=== PATIENT | female | born 1965 | race Hispanic/Latino ===

== ENCOUNTER 2019-10-13 10:23 | Observation (INO) | payer SELFPAY ==
[~2019-10-13] VITALS: Ht 160 cm; Wt 84.4 kg
[2019-10-13] MEDS ORDERED: ONDANSETRON HCL INJ 2MG/ML 2ML 2 MG/ML VIAL IV STA (10:53)
[2019-10-13] MEDS ORDERED: SODIUM CHLORIDE 0.9% 1000ML 1,000 ML IV STA (10:53)
[2019-10-13] MEDS ORDERED: PANTOPRAZOLE 40 MG 10ML VIAL IV STA (10:53)
[2019-10-13] MEDS ORDERED: ASPIRIN 81 MG CHEW TAB PO ONE (11:00)
[2019-10-13 11:30] LABS: BASOPHILS % 0.6 % (0.0-1.0); EOSINOPHILS % 0.4 % (0.0-6.0); HEMATOCRIT 41.5 % (34.2-44.1); HEMOGLOBIN 13.8 g/dL (12.0-16.0); LYMPHOCYTES # (AUTO) 1.6 (1.0-3.2); LYMPHOCYTES % 33.8 % (18.0-39.1); MEAN CORPUSCULAR HEMOGLOBIN 29.2 pg (28-32); MEAN CORPUSCULAR HGB CONC 33.3 g/dL (31-35); MEAN CORPUSCULAR VOLUME 87.7 fL (81-99); MONOCYTES # (AUTO) 0.5 (0.2-0.8); MONOCYTES % 11.3 % (4.4-11.3); NEUTROPHILS # (AUTO) 2.6 (2.1-6.9); NEUTROPHILS % 53.7 % (38.7-80.0); PLATELET COUNT 263 x10e3/uL (140-360); RED BLOOD COUNT 4.73 x10e6/uL (3.6-5.1); RED CELL DISTRIBUTION WIDTH 13.2 % (11.7-14.4)
[2019-10-13 11:40] LABS: INR 0.88; PROTHROMBIN TIME 12.5 seconds (11.9-14.5)
[2019-10-13 11:41] LABS: PARTIAL THROMBOPLASTIN TIME 24.7 seconds (23.8-35.5)
--- NOTE | 2019-10-13 11:44 | NUR ---
patients daughter Lizet [phone]
[2019-10-13 11:49] LABS: ALANINE AMINOTRANSFERASE 172 IU/L (0-55); ALBUMIN 3.9 g/dL (3.5-5.0); ALBUMIN/GLOBULIN RATIO 1.1 (0.8-2.0); ALKALINE PHOSPHATASE 77 IU/L (40-150); ANION GAP 16.2 mmol/L (8-16); BLOOD UREA NITROGEN 11 mg/dL (7-26); BUN/CREATININE RATIO 14 (6-25); CALCIUM 8.9 mg/dL (8.4-10.2); CARBON DIOXIDE 22 mmol/L (22-29); CHLORIDE 104 mmol/L (98-107); CREATINE KINASE 76 IU/L (29-168); CREATININE, SERUM 0.77 mg/dL (0.57-1.11); EST GLOMERULAR FILTRATION RATE > 60 ML/MIN (60-); GLUCOSE 108 mg/dL (74-118); POTASSIUM 4.2 mmol/L (3.5-5.1); SODIUM 138 mmol/L (136-145)
--- NOTE | 2019-10-13 12:18 | Emergency Department Note ---
History of Present Illnes History of Present Illness Chief Complaint: COVID PUI History of Present Illness This is a 54 year old female HERE FOR CHEST PAIN LAST NIGHT, REPORTS PAIN 3/10 AT THIS TIME. DENIES NAUSEA, VOMITING, DIARRHEA, NAUSEA. REPORTS CHILLS AND FEELING HOT YESTERDAY EVENING. DENIES COUGH. CLIENT IN NO APPARENT DISTRESS DURING TRIAGE. STATES THAT HER MOTHER IN LAW OF COVID INFECTION 3 WEEKS AGO. Historian: Patient Arrival Mode: Car [employer] Required: Yes Onset (how long ago): hour(s) (STARTED LAST NIGHT) Location: CHEST Quality: PAIN Radiation: Reports non-radiation Severity: moderate Onset quality: sudden Timing of current episode: intermittent Progression: waxing and waning Chronicity: new Context: Denies recent illness Relieving factors: none Exacerbating factors: none Associated symptoms: Reports shortness of breath Treatments prior to arrival: none Past Medical/Family History Physician Review I have reviewed the patient's past medical and family history. Any updates have been documented here. Past Medical History Recent Fever: No Clinical Suspicion of Infectio: No New/Unexplained Change in Ment: No Past Medical History: Hypertension, Diabetes, Hyperlipedemia Past Surgical History: None Social History Smoking Cessation: Never Smoker Counseling Performed: No Alcohol Use: None Any Illegal Drug Use: No TB Exposure/Symptoms: No Physically hurt or threatened: No Other Any Pre-Existing Lines (PICC,: No Is patient up to date on immun: Yes Last Flu: UTD Last Pneumovax: UTD Review of Systems Review of Systems Constitutional: Reports no symptoms EENTM: Reports no symptoms Cardiovascular: Reports as per HPI, Reports chest pain Respiratory: Reports dyspnea Gastrointestinal: Reports no symptoms Genitourinary: Reports no symptoms Musculoskeletal: Reports no symptoms Integumentary: Reports no symptoms Neurological: Reports no symptoms Psychological: Reports no symptoms Endocrine: Reports no symptoms Hematological/Lymphatic: Reports no symptoms Physical Exam Related Data Allergies: Coded Allergies: No Known Allergies (Unverified , 10/13/19) Triage Vital Signs Vital Signs Date Time Temp Pulse Resp B/P (MAP) Pulse Ox O2 Delivery O2 Flow Rate FiO2 10/13/19 10:44 98.9 81 16 132/98 99 Vital signs reviewed: Yes Physical Exam CONSTITUTIONAL Constitutional: Present well-developed, Present well-nourished HENT HENT: Present normocephalic, Present atraumatic, Present oropharynx clear/mois t, Present nose normal HENT L/R: Present left ext ear normal, Present right ext ear normal EYES Eyes: Reports PERRL, Reports conjunctivae normal NECK Neck: Present ROM normal PULMONARY Pulmonary: Present effort normal, Present breath sounds normal CARDIOVASCULAR Cardiovascular: Present regular rhythm, Present heart sounds normal, Present capillary refill normal, Present normal rate GASTROINTESTINAL Abdominal: Present soft, Present nontender, Present bowel sounds normal GENITOURINARY Genitourinary: Present exam deferred SKIN Skin: Present warm, Present dry MUSCULOSKELETAL Musculoskeletal: Present ROM normal NEUROLOGICAL Neurological: Present alert, Present oriented x 3, Present no gross motor or sensory deficits PSYCHOLOGICAL Psychological: Present mood/affect normal, Present judgement normal Results Laboratory Result Diagram: 10/13/19 1114 10/13/19 1114 Laboratory Laboratory Tests Test 10/13/19 11:14 White Blood Count 4.77 x10e3/uL (4.8-10.8) Red Blood Count 4.73 x10e6/uL (3.6-5.1) Hemoglobin 13.8 g/dL (12.0-16.0) Hematocrit 41.5 % (34.2-44.1) Mean Corpuscular Volume 87.7 fL (81-99) Mean Corpuscular Hemoglobin 29.2 pg (28-32) Mean Corpuscular Hemoglobin Concent 33.3 g/dL (31-35) Red Cell Distribution Width 13.2 % (11.7-14.4) Platelet Count 263 x10e3/uL (140-360) Neutrophils (%) (Auto) 53.7 % (38.7-80.0) Lymphocytes (%) (Auto) 33.8 % (18.0-39.1) Monocytes (%) (Auto) 11.3 % (4.4-11.3) Eosinophils (%) (Auto) 0.4 % (0.0-6.0) Basophils (%) (Auto) 0.6 % (0.0-1.0) Neutrophils # (Auto) 2.6 (2.1-6.9) Lymphocytes # (Auto) 1.6 (1.0-3.2) Monocytes # (Auto) 0.5 (0.2-0.8) Eosinophils # (Auto) 0.0 (0.0-0.4) Basophils # (Auto) 0.0 (0.0-0.1) Absolute Immature Granulocyte (auto 0.01 x10e3/uL (0-0.1) Prothrombin Time 12.5 seconds (11.9-14.5) Prothromb Time International Ratio 0.88 Activated Partial Thromboplast Time 24.7 seconds (23.8-35.5) D-Dimer Quantitative (PE/DVT) 0.28 ug/mLFEU (0.00-0.45) Sodium Level 138 mmol/L (136-145) Potassium Level 4.2 mmol/L (3.5-5.1) Chloride Level 104 mmol/L (98-107) Carbon Dioxide Level 22 mmol/L (22-29) Anion Gap 16.2 mmol/L (8-16) Blood Urea Nitrogen 11 mg/dL (7-26) Creatinine 0.77 mg/dL (0.57-1.11) Estimat Glomerular Filtration Rate > 60 ML/MIN (60-) BUN/Creatinine Ratio 14 (6-25) Glucose Level 108 mg/dL (74-118) Calcium Level 8.9 mg/dL (8.4-10.2) Total Bilirubin 0.2 mg/dL (0.2-1.2) Aspartate Amino Transf (AST/SGOT) 91 IU/L (5-34) Alanine Aminotransferase (ALT/SGPT) 172 IU/L (0-55) Alkaline Phosphatase 77 IU/L (40-150) Creatine Kinase 76 IU/L (29-168) Creatine Kinase MB 0.70 ng/mL (0-5.0) Troponin I < 0.001 ng/mL (0-0.300) B-Type Natriuretic Peptide < 10.0 pg/mL (0-100) Total Protein 7.3 g/dL (6.5-8.1) Albumin 3.9 g/dL (3.5-5.0) Globulin 3.4 g/dL (2.3-3.5) Albumin/Globulin Ratio 1.1 (0.8-2.0) Lab results reviewed: Yes Imaging Imaging results reviewed: Yes Procedures 12 Lead ECG Interpretation ECG Interpretation : ECG: ECG 1 [employer]: Interpreted by ED physician Date: Oct 13, 2019 Time: 11:07 Rhythm: sinus rhythm Rate: normal (74) QRS axis: normal ST segments normal: Yes T waves normal: Yes Clinical Impression: normal ECG Assessment & Plan Medical Decision Making MDM PT WITH CARDIAC RF'S OF HTN, DM, CHOL PRESENTS WITH CHEST PAIN, MILD SOB, AND RECENT EXPOSURE TO COVID19 - CHECK CBC, CHEM'S, CARDIAC ENZYMES, PT/PTT, CXR, COVID SWAB - R/O STEMI/NSTEMI, COVID19, ELECTROYTE ABNL, ANEMIA Reassessment Reassessment i SPOKE WITH DR CABAN FOR ADMISSION, DR Alex MCKEON AND RAINA FOR CONSULTS Assessment & Plan Final Impression: (1) Chest pain Depart Disposition: ADMITTED Last Vital Signs Date Time Temp Pulse Resp B/P (MAP) Pulse Ox O2 Delivery O2 Flow Rate FiO2 10/13/19 11:15 75 18 127/80 99 10/13/19 10:44 98.9 Medications in the ED Pantoprazole Sodium 40 mg ONCE STAT IV Last administered on 10/13/19at 11:49; Admin Dose 40 MG; Start 10/13/19 at 10:53; Stop 10/13/19 at 11:06; Status DC Ondansetron HCl 4 mg ONCE STAT IV Last administered on 10/13/19at 11:49; Admin Dose 4 MG; Start 10/13/19 at 10:53; Stop 10/13/19 at 11:06; Status DC Sodium Chloride 1,000 ml @ 0 mls/hr Q0M STAT IV Last administered on 10/13/19at 11:49; Admin Dose 1,000 MLS/HR; Start 10/13/19 at 10:53; Stop 10/13/19 at 10:56; Status DC Aspirin 81 mg PRN ONCE PO Last administered on 10/13/19at 11:49; Admin Dose 81 MG; Start 10/13/19 at 11:00; Stop 10/13/19 at 11:06; Status DC CATRACHO NGUYEN MD Oct 13, 2019 12:18
[2019-10-13] MEDS ORDERED: MORPHINE SULFATE 2 MG/ML SYR 1ML IV PRN (12:30)
[2019-10-13] MEDS ORDERED: ONDANSETRON HCL INJ 2MG/ML 2ML 2 MG/ML VIAL IV PRN (12:30)
[2019-10-13] MEDS ORDERED: NITROGLYCERIN 0.4 MG SUBL SL PRN (12:30)
[2019-10-13] MEDS ORDERED: DEXTROSE 50% SYRINGE 50 ML IV PRN (12:30)
--- NOTE | 2019-10-13 12:56 | NUR ---
CALLED FOR LUNCH MEAL TRAY
--- NOTE | 2019-10-13 12:57 | Diagnostic Imaging Report ---
TECHNIQUE: Frontal view of the chest. INDICATION: ^COUGH, CP ^[id number] ^1200 COMPARISON: None. IMPRESSION: Lines and hardware: None. Heart and mediastinum: Unremarkable. Lungs and pleura: No focal airspace consolidation. No pleural effusion. No pneumothorax. Soft tissues and bones: No acute abnormality. Signed by: Gee Siddiqui MD on 10/13/2019 12:54 PM
[2019-10-13 14:04] VITALS: BP 132/73
[2019-10-13] MEDS ORDERED: HYDROCODONE/APAP 5MG-325MG TAB PO PRN (14:15)
[2019-10-13 14:41] VITALS: BP 131/69
--- NOTE | 2019-10-13 15:28 | NUR ---
GAVE PACKET OF INFORMATION WITH [facility]ITY [employer] FOR ASSISTANCE WITH LOW TO NO INCOME TO PATIENT. RESOURCES THAT PATIENT MAY BE ABLE TO FOLLOW UP UPON DISCHARGE. PT EDUCATED ON EACH RESOURCE AND UNDERSTANDING HOW TO FOLLOW UP TO SEE IF QUALIFIED FOR EACH RESOURCE.
[2019-10-13 16:00] VITALS: BP 131/69
--- NOTE | 2019-10-13 16:21 | Consultation ---
DATE OF CONSULTATION: REASON FOR CONSULTATION: COVID-19. HISTORY OF PRESENT ILLNESS: This is a 54-year-old Latin-Citizen Of [place] female, comes in with fever, chills, chest pain . The patient had fever and chills. No cough. The patient was admitted. PAST MEDICAL HISTORY: Denies. PAST SURGICAL HISTORY: Denies. ALLERGIES: NKA. SOCIAL HISTORY: There is no smoking, drug abuse or alcohol abuse. LABORATORY DATA: White count 4.77, hemoglobin 13.8. Her COVID-19 is pending. potassium 4.2, creatinine 0.77. PHYSICAL EXAMINATION: GENERAL: Currently alert, oriented. VITAL SIGNS: Stable, afebrile, heart rate of 81, respirations 16. HEENT: Normocephalic, not icteric. NECK: Supple. CHEST: Clear bilateral. COR: S1 and S2. No S3, S4, or murmur. ABDOMEN: Soft. Bowel sounds present. EXTREMITIES: No edema. SKIN: No rash. IMPRESSION: Chest x-ray was negative; chest pain, feeling feverish, rule out viral infection since this is coronavirus disease-19 we are going to rule her out. Keep her on droplet isolation for now. IV fluid. No antibiotic at the present time. We will reassess. MD KELLEY Richards/JASVIR /[id number]
[2019-10-13] MEDS ORDERED: ENOXAPARIN SOD INJ 40 MG/0.4 ML SYR SC SCH (17:00)
[2019-10-13] MEDS ORDERED: CEFTRIAXONE SOD 1 GM/NS 50 ML 50 ML IV SCH (17:30)
[2019-10-13] MEDS ORDERED: AZITHROMYCIN 500MG/NS 250 ML 250 ML IV SCH (18:00)
[2019-10-13] MEDS: INSULIN LISPRO 100 UNIT/1 ML 3ML VIAL SQ SCH ×2 (18:05→20:32)
[2019-10-13] MEDS ORDERED: SODIUM CHLORIDE 0.9% 250ML 250 ML ONE (18:12)
[2019-10-13] MEDS ORDERED: LOSARTAN POTASS25 MG (18:43)
[2019-10-13] MEDS ORDERED: METFORMIN HCL500 MG PO (18:43)
--- NOTE | 2019-10-13 18:50 | NUR ---
Patient arrived from ER at 1430 . 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 Patient is on room air. Patient has a patent, c/d/i IV in the left 20g AC. Patient has Daoralia, Zac, Shebib, and Palmer on the case, all doctors were notified by Dr. Latham in the ER. Patient was oriented to room, procedures, and plan of care from here on out. No other issues or questions at this time.
[2019-10-13 19:00] LABS: CREATINE KINASE 71 IU/L (29-168)
--- NOTE | 2019-10-13 19:11 | Consultation ---
DATE OF CONSULTATION: Pulmonary Critical Care Consultation CHIEF COMPLAINT: Chest discomfort and fevers. HISTORY OF PRESENT ILLNESS: The patient is a 54-year-old woman. She reports some fevers for 3 or 4 days. She noted some discomfort in her chest as well. She denies cough or difficulty breathing. She is not having nausea or vomiting. PAST MEDICAL HISTORY: Diabetes. PAST SURGICAL HISTORY: Noncontributory. ALLERGIES: NO KNOWN DRUG ALLERGIES. FAMILY HISTORY: Family history is noncontributory. SOCIAL HISTORY: The patient is not a smoker or drinker. REVIEW OF SYSTEMS: The patient reports some fever. She is not having any headache. She denies any neck pain. She did have some chest pain. She denies dyspnea or cough. She has no abdominal pain. There is no nausea or vomiting. She has no leg edema. PHYSICAL EXAMINATION: VITAL SIGNS: Stable. The blood pressure is 132/73, saturation is 100%, and the pulse is 73. The respiratory rate is 24. HEENT: Shows no facial swelling or erythema. CARDIAC: Reveals regular rate and rhythm with normal S1 and S2. There are no murmurs or rubs. LUNGS: Auscultation of lungs reveals clear breath sounds bilaterally. There is no wheezing. ABDOMEN: Soft and nontender. There is no rebound or guarding. EXTREMITIES: Shows no leg edema or calf tenderness. There is no cyanosis or clubbing. SKIN: Shows no rashes. NEUROLOGICAL: Shows no focal abnormalities. LABORATORY DATA: BUN to creatinine ratio is 11 to 0.77 and the AST is 91. RADIOGRAPHIC DATA: Chest x-ray shows no abnormalities. IMPRESSION: 1. COVID-19 and viral pneumonia. 2. Diabetes. PLAN: 1. IV hydration as needed. 2. Oxygen as needed. 3. Zithromax and Rocephin. 4. Lovenox. Uvaldo Bal MD [facility]/MODL /[id number]
[2019-10-13 20:10] VITALS: BP 113/73
[2019-10-13] MEDS: FAMOTIDINE 20 MG/2 ML VIAL IV SCH (20:31)
[2019-10-13] MEDS ORDERED: MELATONIN 5 MG TABLET PO PRN (21:00)
[2019-10-13 22:58] VITALS: BP 113/73
[2019-10-14 00:04] VITALS: BP 107/62
[2019-10-14 04:05] VITALS: BP 113/73
[2019-10-14 05:46] LABS: BASOPHILS % 0.9 % (0.0-1.0); EOSINOPHILS % 0.9 % (0.0-6.0); HEMATOCRIT 40.3 % (34.2-44.1); HEMOGLOBIN 13.3 g/dL (12.0-16.0); LYMPHOCYTES # (AUTO) 2.2 (1.0-3.2); LYMPHOCYTES % 47.6 % (18.0-39.1); MEAN CORPUSCULAR HEMOGLOBIN 30.2 pg (28-32); MONOCYTES # (AUTO) 0.3 (0.2-0.8); MONOCYTES % 7.3 % (4.4-11.3); NEUTROPHILS % 43.1 % (38.7-80.0); PLATELET COUNT 178 x10e3/uL (140-360); RED CELL DISTRIBUTION WIDTH 13.4 % (11.7-14.4)
[2019-10-14 05:47] LABS: MEAN CORPUSCULAR VOLUME 91.6 fL (81-99)
[2019-10-14 06:04] LABS: ALANINE AMINOTRANSFERASE 136 IU/L (0-55); ALBUMIN 3.4 g/dL (3.5-5.0); ALBUMIN/GLOBULIN RATIO 1.1 (0.8-2.0); ALKALINE PHOSPHATASE 67 IU/L (40-150); ANION GAP 14.2 mmol/L (8-16); BLOOD UREA NITROGEN 13 mg/dL (7-26); BUN/CREATININE RATIO 17 (6-25); CALCIUM 8.4 mg/dL (8.4-10.2); CARBON DIOXIDE 25 mmol/L (22-29); CHLORIDE 103 mmol/L (98-107); CHOL/HDL RATIO 4.9 (3.0-3.6); CHOLESTEROL 186 MD/DL (0-199); CREATININE, SERUM 0.75 mg/dL (0.57-1.11); EST GLOMERULAR FILTRATION RATE > 60 ML/MIN (60-); GLUCOSE 120 mg/dL (74-118); HDL CHOLESTEROL 38 MG/DL (40-60); LDL CHOLESTEROL 125 MG/DL (60-130); POTASSIUM 4.2 mmol/L (3.5-5.1); SODIUM 138 mmol/L (136-145); TRIGLYCERIDES 116 MG/DL (0-149)
[2019-10-14 06:06] LABS: CREATINE KINASE MB 0.4 ng/mL (0-5.0)
[2019-10-14] MEDS: INSULIN LISPRO 100 UNIT/1 ML 3ML VIAL SQ SCH ×2 (07:30→12:22)
[2019-10-14] MEDS: FAMOTIDINE 20 MG/2 ML VIAL IV SCH (08:55)
[2019-10-14] MEDS ORDERED: ASPIRIN 81 MG ENTERIC COATED PO SCH (09:00)
[2019-10-14 09:06] VITALS: BP 113/73
--- NOTE | 2019-10-14 10:00 | NUR ---
Dr. Barth assessed patient and cleared patient for discharge. Office information given to patient and patient's daughter.
--- NOTE | 2019-10-14 11:39 | Progress Note ---
DATE: SUBJECTIVE: The patient is seen and evaluated. Available labs and notes reviewed. Discussed with the patient. The patient is Ukrainian speaking. Discussed with the nurse. Please refer to chart for more information. REVIEW OF SYSTEMS: The patient denied nausea, vomiting, fever, chills, chest pain, shortness of breath, diarrhea, cough. The patient states that she is doing totally okay. PHYSICAL EXAMINATION: VITAL SIGNS: Temperature 98.1, pulse 78, respirations 17, blood pressure 113/73. GENERAL: Alert and oriented, very pleasant, sitting in the edge of the bed on room air, in no acute distress. CV: S1, S2. CHEST: Equal expansion. Clear to auscultation with decreased breath sounds. ABDOMEN: Soft, nontender, no distention. HEENT: Moist. No pallor. No JVD. EXTREMITIES: Moves all. No significant edema. MEDICATIONS: Medication is reviewed. From ID point of view, the patient is on Zithromax and Rocephin. LABORATORY STUDIES: White count 4.52, hemoglobin 13.3, platelet 178. Sodium 138, potassium 4.5, creatinine 0.75. Serology; coronavirus PCR on 10/13/2019 detected. IMAGING: Chest x-ray on 10/13/2019, showed no focal airspace consolidation, no pleural effusion, no pneumothorax with no acute abnormalities of the soft tissue or the bones. ASSESSMENT AND PLAN: 1. Positive coronavirus disease-19 on 10/13/2019 with possible superimposed bacterial infection. 2. Hyperglycemia. 3. Insomnia. 4. Pain. 5. Continue with Rocephin and Zithromax. The patient is also on aspirin 81 mg and Lovenox 40 mg daily. Monitor patient clinically on a daily basis and monitor for DVT and PE. 6. Please refer to the chart for more information. Currently, the patient is asymptomatic and no fever and no shortness of breath. Discussed with Dr. Castillo in details. Dictated by Zack Carrera PA-C (Al) Isi Castillo MD /MODL /[id number]
[2019-10-14 11:49] VITALS: BP 124/69
--- NOTE | 2019-10-14 12:58 | NUR ---
confirmed with patient and daughter, Lizet, that patient has no previous history of any abnormal bleeding and not currently experiencing any bleeding.
[2019-10-14] MEDS ORDERED: ONDANSETRON HCL 4 MG ORAL DISINTEGRATING TAB PO PRN (13:30)
--- NOTE | 2019-10-14 13:33 | NUR ---
discharge completed with patient and over phone with daughter. prescriptions given to patient along with coupon for eliquis. all questions answered. patient aware of follow ups needed and clear on discharge instructions. iv access removed, bleeding controlled and dressing applied. telemetry removed. 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
--- NOTE | 2019-10-14 13:40 | Progress Note ---
DATE: SUBJECTIVE: The patient feels better. She is not complaining of dyspnea or cough. She has no chest pain. She is not having any fevers. PHYSICAL EXAMINATION: VITAL SIGNS: The blood pressure is 124/69, saturation is 98%. The pulse is 69. Respiratory rate is 16. HEENT: No facial swelling or erythema. CARDIAC: Regular rate and rhythm with normal S1, S2. LUNGS: Auscultation of lungs reveals clear breath sounds bilaterally. There is no wheezing. ABDOMEN: Soft, nontender. There is no rebound or guarding. LABORATORY DATA: White blood cell count is 4.5 and hemoglobin is 13.3. The platelet count is 178. BUN to creatinine ratio is 13 to 0.75. The other electrolytes are within normal limits. AST is 165 and ALT is 136. Albumin is 3.4. IMPRESSION: 1. Coronavirus disease-19 and viral pneumonia. 2. Diabetes. PLAN: 1. Okay for discharge home. 2. Zithromax at home. 3. Self quarantine until the patient is asymptomatic for 7 days. 4. Follow up with physician after self quarantine. 5. The patient should return to the ER for any worsening dyspnea or fevers or concerns. Uvaldo Bal MD [facility]/JASVIR /[id number]
--- NOTE | 2019-10-14 14:02 | NUR ---
patient ambulated off unit in mask to 's personal vehicle.
--- NOTE | 2019-10-14 20:26 | Consultation ---
DATE OF CONSULTATION: Cardiology Consultation REASON FOR CONSULTATION: Chest pain. HISTORY OF PRESENT ILLNESS: This is a 54-year-old woman who presented with fever, mild chest discomfort and some shortness of breath. No cough, nausea, vomiting, or diarrhea. She has no past cardiac history. She was found to be positive for the coronavirus. REVIEW OF SYSTEMS: A 12-point review of system was conducted, is negative except as stated above in the HPI. PAST MEDICAL HISTORY: As stated above in the HPI. PAST SURGICAL HISTORY: Noncontributory to current illness. PAST FAMILY HISTORY: Noncontributory to current illness. SOCIAL HISTORY: No illicit drug, alcohol, or tobacco use. ALLERGIES: NO KNOWN DRUG ALLERGIES. MEDICATIONS: See medication reconciliation form. PHYSICAL EXAMINATION: VITAL SIGNS: She is afebrile, heart rate 69, respirations 16, blood pressure is 124/69, oxygen saturation 98% on room air. GENERAL: Well appearing, well built, no apparent distress. Alert and oriented x3. HEAD: Normocephalic and atraumatic. EYES: Extraocular muscles intact. Conjunctivae clear. NECK: No JVD. No bruits. CARDIOVASCULAR: Regular rate and rhythm. LUNGS: Clear to auscultation. ABDOMEN: Soft, nontender, nondistended. EXTREMITIES: No clubbing cyanosis or edema. VASCULAR: 2+ pulses. SKIN: Warm, dry and intact. LABORATORY DATA: Reviewed. Cardiac troponins are negative. CARDIOVASCULAR MEDICATIONS: Reviewed. Chest x-ray shows no acute cardiopulmonary abnormality. Echocardiogram showed preserved left ventricular systolic function. IMPRESSION: 1. Positive for the coronavirus. 2. Chest pain. 3. Elevated liver function tests. 4. A 12-lead electrocardiogram showed normal sinus rhythm. RECOMMENDATIONS: The patient was ruled out for acute myocardial infarction. A 12-lead electrocardiogram was within normal limits. Her echocardiogram was within normal limits. The patient may be discharged from a cardiovascular standpoint with outpatient followup. Abnormal liver enzymes evaluation per primary team. Coronavirus treatment per primary team. Yan Barth DO [facility]/MODL /[id number]
--- NOTE | 2019-10-14 20:46 | History and Physical ---
CHIEF COMPLAINT: Cough, congestion, and fever. HISTORY OF PRESENT ILLNESS: A 54-year-old female, morbidly obese, came into the ED with complaints of cough, congestion, and fever ongoing since Friday of this last week. The patient reports that she was exposed to bullard virus people and came in to be further evaluated and managed. While here, the patient was found to be bullard virus positive. She was admitted to the COVID Unit and being managed by ID and Pulmonary. The patient was complaining of chest pain in which Cardiology was involved. Cardiac enzymes were found to be worked up and Cardiology was consulted. The patient is seen and evaluated at bedside on the medical floor. She is currently doing well with no other issues at this time. REVIEW OF SYSTEMS: Pertinent positives chest pain, cough, congestion, and fever. The rest of 14-point review of systems have been reviewed the patient and are negative. ALLERGIES: NO KNOWN DRUG ALLERGIES. MEDICATIONS: Losartan and metformin. PAST MEDICAL HISTORY: Hypertension and diabetes. PAST SURGICAL HISTORY: None. FAMILY HISTORY: Hypertension and diabetes. SOCIAL HISTORY: No drugs. No alcohol. Does not smoke. Has children. PHYSICAL EXAMINATION: VITAL SIGNS: Temperature 98.5, pulse 69, respirations 16, blood pressure 124/69, pulse ox 98% on room air. GENERAL: Not in acute distress, alert and oriented x3. Cooperative on examination. HEAD: Normocephalic and atraumatic. EYES: Extraocular muscles are intact bilaterally. NECK: Supple. Good range of motion throughout. No evidence of erythema or exudate in the posterior pharynx. Has poor dentition. PULMONARY: Clear to auscultation bilaterally. No wheezing, rales, or rhonchi. No crackles appreciated. CARDIOVASCULAR: Positive S1, S2. No murmurs, rubs, or gallops. ABDOMEN: Soft, nontender, nontender to palpation. Bowel sounds present. MUSCULOSKELETAL: Strength is 5/5 throughout. No evidence of any muscle deficits on examination. No weakness appreciated. NEUROLOGIC: Cranial nerves II through XII grossly intact. No evidence of any neurological deficits on exam. SKIN: Intact. Warm to touch. Good cap refill. PSYCHIATRIC: Normal affect and mood. EXTREMITIES: No edema. Good range of motion throughout. LABORATORY FINDINGS: Show white count 4.5, hemoglobin 13, hematocrit 40, platelets of 178,000. Coagulation PT 12, INR 0.88, PTT 24.7. D-dimer 0.28. Chemistry sodium is 138, potassium 4.2, chloride 103, bicarb 25, anion gap of 14, BUN 13, creatinine 0.75, glucose 120, A1c 7, calcium 8.4, total bilirubin is 0.2, AST 65, ALT 136. Troponins were negative. Albumin 3.4. LDL is 125. TSH is 2. Serology for bullard virus PCR positive. IMAGING STUDIES: Chest x-ray shows no acute abnormality. IMPRESSION: 1. COVID-19 pneumonia. 2. Cough, congestion, and fever secondary to #1. 3. Chest pain. 4. Type 2 diabetes. PLAN: At this time symptomatic treatment. IV antibiotics. ID and pulmonary consultation. Put on insulin sliding scale. Trend cardiac enzymes. Cardiology consultation. Resume same home medications. Lovenox for DVT prophylaxis. MD FADY Gutiérrez/JASVIR /[id number]
--- NOTE | 2019-10-14 22:26 | Discharge Summary ---
FINAL DISCHARGE DIAGNOSES: 1. Coronavirus disease 2019 pneumonia. 2. Cough and congestion secondary to coronavirus disease 2019 pneumonia. 3. Atypical chest pain. 4. Type 2 diabetes. CONSULTANTS: 1. Cardiology cleared for discharge. 2. ID cleared for discharge. 3. Pulmonary cleared for discharge. VITAL SIGNS: Temperature is 98.5, pulse 69, respiratory rate is 16, blood pressure 124/69, pulse ox 98% on room air. LABORATORY DATA: Labs show white count is 4.5, hemoglobin 13, hematocrit is 40, and platelets of 178. Coagulation; PT 12, INR 0.88, PTT 24. D-dimer is 0.28. Chemistry; sodium 138, potassium 4.2, chloride 103, bicarb 25, anion gap of 14, BUN 13, creatinine is 0.75, glucose 120, hemoglobin A1c is 7, calcium 8.4. LFTs; total bilirubin is 0.2, AST 65, ALT 136, alkaline phosphatase 67. Troponins were all negative. Albumin 3.4, LDL 125, TSH 2. SEROLOGY: Coronavirus positive. MICROBIOLOGY: None. IMAGING STUDIES: Chest x-ray was found to be normal with no acute findings. HOSPITAL COURSE: A 54-year-old female, morbidly obese, came into the ED with chest pain, cough, congestion, and subjective fever. The patient was admitted to the coronavirus unit, found to have COVID positive. The patient was treated symptomatically. The patient did not require any oxygen while here in the hospital stay. Of note, she is on room air on discharge. She was on IV antibiotics. ID and Pulmonary were consulted. She was treated symptomatically, in which she improved tremendously. She is currently doing very well on room air with no issues. Cardiology was consulted for chest pain. Cardiac enzymes were negative. A 2D echo was performed, found to be within normal range and the patient has been cleared for discharge by Cardiology. No further workup was needed by any other consultants and of note, they cleared the patient for discharge. Due to the pandemic and coronavirus, it has been advised to give anticoagulation on discharge. So, I talked with the patient and the family. They reported there is no reports of any GI bleed or any kind of bleeding, hemoptysis, hematemesis, hematochezia, or hematuria. No bleeding disorders. The patient was discharged on oral Eliquis for continuous care and will follow up with her PCP, ID, and Pulmonary in the next 1 to 2 weeks' time. She verbalized understanding. The patient was stable prior to being discharge to home. She was educated about wearing a mass, quarantine for 2 weeks, avoiding any contact to get other people sick, and also discussed with her to call 911 in the event she gets any worsening symptoms, and to please come to the emergency room as soon as possible for further evaluation. She verbalized all the plan of care as described as well as her family. MEDICATIONS: See med reconciliation form. DISPOSITION: Home. CONDITION: Stable. DIET: Heart healthy. In the event of any worsening symptoms, the patient was advised to come back to the ED for further evaluation. Discharge summary took greater than 35 minutes. MD FADY Gutiérrez/JASVIR /[id number]
== END 2019-10-14 13:30 | disposition home or self-care (01) ==
LOC: ER 10:23 → ERHOLD 10:56 → IMCU 14:23
PROVIDERS: ADMIT Internal Medicine; ATTEND Internal Medicine
DX: U07.1 COVID-19 (principal); J12.89 Other viral pneumonia; I10 Essential (primary) hypertension; E11.65 Type 2 diabetes mellitus with hyperglycemia; E78.5 Hyperlipidemia, unspecified; Z77.9 Other contact with and (suspected) exposures hazardous to health; E66.01 Morbid (severe) obesity due to excess calories; G47.00 Insomnia, unspecified; R07.89 Other chest pain; Z68.32 Body mass index [BMI] 32.0-32.9, adult; Z79.84 Long term (current) use of oral hypoglycemic drugs
CPT/HCPCS: 36415; 71045; 80053; 80061; 82550; 82553; 82948; 83036; 83880; 84443; 84484; 85025; 85379; 85610; 85730; 87635; 93005; 93306; 99284; G0378; J0456; J0696; J1650; J2405; J7030; J7050